=== PATIENT | female | born 1990 | race African-American/Black ===

== ENCOUNTER 2016-08-12 21:53 | Emergency (ER) | payer MEDICAID | END 2016-08-12 23:32 | disposition home or self-care (01) | LOC: D.ER 21:53 | DX: M54.5 Low back pain (principal); W01.0XXA Fall on same level from slipping, tripping and stumbling without subsequent striking against object, initial encounter; Y93.89 Activity, other specified; Y92.019 Unspecified place in single-family (private) house as the place of occurrence of the external cause ==

== ENCOUNTER 2017-01-27 00:36 | Emergency (ER) | payer MEDICAID | END 2017-01-27 02:26 | disposition home or self-care (01) | LOC: D.ER 00:36 | DX: L02.415 Cutaneous abscess of right lower limb (principal); B95.62 Methicillin resistant Staphylococcus aureus infection as the cause of diseases classified elsewhere ==

== ENCOUNTER 2017-02-25 17:16 | Emergency (ER) | payer MEDICAID | END 2017-02-25 18:49 | disposition home or self-care (01) | LOC: D.ER 17:16 | DX: L02.415 Cutaneous abscess of right lower limb (principal); R50.9 Fever, unspecified ==

== ENCOUNTER 2018-01-11 05:45 | Emergency (ER) | payer MEDICAID ==
[~2018-01-11] VITALS: Ht 170.2 cm; Wt 63.6 kg
[2018-01-11 05:59] VITALS: Ht 170.2 cm; Wt 63.6 kg
[2018-01-11] MEDS ORDERED: PROZAC10 MG (06:00)
[2018-01-11 06:27] LABS: BASOPHILS 0.1 % (0-2); EOSINOPHILS 1.1 % (0-7); HEMOGLOBIN 11.5 g/dL (12-16); IMMATURE GRANULOCYTES 0.1 % (0-5); LYMPHOCYTES 18.5 % (15-50); MCH 32.5 pg (26.0-34.0); MCHC 34.8 g/dL (31.0-37.0); MCV 93.2 fL (80.0-100.0); MONOCYTES 9.4 % (2-11); NEUTROPHILS 70.8 % (40-80); PLATELET COUNT 152 10x3/uL (130-400); RBC 3.54 10x6/uL (4.00-5.40); RDW 12.9 % (11.5-14.5); WBC 7.8 10x3/uL (4.8-10.8)
[2018-01-11 06:36] LABS: HCG SERUM POSITIVE (NEGATIVE)
[2018-01-11 06:43] LABS: APPEARANCE SLT CLOUDY (CLEAR); BILIRUBIN NEGATIVE (NEGATIVE); COLOR YELLOW (YELLOW); GLUCOSE NEGATIVE (NEGATIVE); KETONE NEGATIVE (NEGATIVE); NITRITE NEGATIVE (NEGATIVE); PROTEIN TRACE mg/dL (NEGATIVE); SPECIFIC GRAVITY 1.025 (1.005-1.020); UROBILINOGEN NORMAL (NORMAL)
[2018-01-11 06:46] LABS: BACTERIA MODERATE /hpf (NONE SEEN); MUCUS >1+ /lpf (NONE SEEN); RED CELLS - URINE RARE /hpf (0-5)
[2018-01-11 06:50] LABS: ALBUMIN 3.4 g/dL (3.4-5.0); ALKALINE PHOSPHATASE 33 U/L (46-116); ALT (SGPT) 14 U/L (10-68); BILIRUBIN - TOTAL 0.67 mg/dL (0.2-1.3); CALC OSMOLALITY 269 mosm/kg (275-300); CALCIUM 8.7 mg/dL (8.5-10.1); CARBON DIOXIDE 27.3 mmol/L (21.0-32.0); CHLORIDE - SERUM 102 mmol/L (98-107); CREATININE - SERUM 0.5 mg/dL (0.6-1.3); GLUCOSE 87 mg/dL (74-106); POTASSIUM - SERUM 3.5 mmol/L (3.5-5.1); SODIUM 136 mmol/L (136-145); UREA NITROGEN 10 mg/dL (7-18); eGFR NON AFRICAN AMERICAN > 90 mL/min (90-120)
[2018-01-11 07:07] LABS: HCG - QUANTITATIVE (MATERNAL) 102558 mIU/mL
[2018-01-11] MEDS ORDERED: MACROBID100 MG PO (08:36)
[2018-01-11 08:46] VITALS: BP 114/77
== END 2018-01-11 08:47 | disposition home or self-care (01) ==
LOC: D.ER 05:45
PROVIDERS: Family Medicine
DX: O23.41 Unspecified infection of urinary tract in pregnancy, first trimester (principal); Z3A.10 10 weeks gestation of pregnancy

== ENCOUNTER → 2018-05-03 12:41 | Outpatient (CLI) | payer MEDICAID ==
[2018-01-11 05:59] VITALS: BMI 21.9
[~2018-05-03 12:41] MED LIST: MACROBID100 MG PO; PROZAC10 MG
[2018-05-03 14:52] LABS: BASOPHILS 0.1 % (0-2); EOSINOPHILS 0.6 % (0-7); HEMATOCRIT 30.5 % (36.0-48.0); HEMOGLOBIN 10.5 g/dL (12-16); IMMATURE GRANULOCYTES 0.6 % (0-5); LYMPHOCYTES 8.6 % (15-50); MCH 33.3 pg (26.0-34.0); MCHC 34.4 g/dL (31.0-37.0); MCV 96.8 fL (80.0-100.0); MEAN PLATELET VOLUME 10.9 fL (7.4-10.4); MONOCYTES 6.8 % (2-11); NEUTROPHILS 83.3 % (40-80); PLATELET COUNT 169 10x3/uL (130-400); RBC 3.15 10x6/uL (4.00-5.40); WBC 13.5 10x3/uL (4.8-10.8)
[2018-05-03 15:19] LABS: UDS - AMPHET NEGATIVE QUAL (NEGATIVE); UDS - BARB NEGATIVE QUAL (NEGATIVE); UDS - BENZO NEGATIVE QUAL (NEGATIVE); UDS - COCAINE NEGATIVE QUAL (NEGATIVE); UDS - OPIATE NEGATIVE QUAL (NEGATIVE); UDS - PCP NEGATIVE QUAL (NEGATIVE); UDS - THC POSITIVE QUAL (NEGATIVE)
[2018-05-03 15:27] LABS: APPEARANCE CLEAR (CLEAR); BILIRUBIN NEGATIVE (NEGATIVE); COLOR YELLOW (YELLOW); EPITHELIAL CELLS 0-5 /hpf (0-5); GLUCOSE NEGATIVE (NEGATIVE); KETONE NEGATIVE (NEGATIVE); NITRITE NEGATIVE (NEGATIVE); PROTEIN 2+ mg/dL (NEGATIVE); RED CELLS - URINE OCC /hpf (0-5); UROBILINOGEN NORMAL (NORMAL); WHITE CELLS - URINE 0-5 /hpf (0-5)
[2018-05-03 15:47] LABS: INR 1.1 (0.85-1.17); PROTIME 13.8 SECONDS (11.6-15.0)
== END | disposition home or self-care (01) ==
LOC: D.ER 12:41 → D.LDO 12:41 → EDSTATUS 12:47
PROVIDERS: Obstetrics & Gynecology
DX: O26.892 Other specified pregnancy related conditions, second trimester (principal); Z3A.26 26 weeks gestation of pregnancy; R10.2 Pelvic and perineal pain

== ENCOUNTER 2018-07-23 20:13 | Outpatient (CLI) | payer MEDICAID ==
[2018-01-11 05:59] VITALS: BMI 21.9
[2018-07-23 21:25] LABS: APPEARANCE CLEAR (CLEAR); BILIRUBIN NEGATIVE (NEGATIVE); COLOR YELLOW (YELLOW); GLUCOSE NEGATIVE (NEGATIVE); KETONE NEGATIVE (NEGATIVE); NITRITE NEGATIVE (NEGATIVE); PROTEIN NEGATIVE (NEGATIVE); UROBILINOGEN NORMAL (NORMAL)
[2018-08-07 09:27] VITALS: BMI 29.7
== END 2018-07-24 00:34 | disposition home or self-care (01) ==
LOC: D.LDO 20:13 → D.LD 23:54 → D.LDO 07-24 00:34
PROVIDERS: Obstetrics & Gynecology
DX: O26.893 Other specified pregnancy related conditions, third trimester (principal); Z3A.37 37 weeks gestation of pregnancy

== ENCOUNTER 2018-07-27 19:44 | Outpatient (CLI) | payer MEDICAID ==
[2018-01-11 05:59] VITALS: BMI 21.9
[2018-08-07 09:27] VITALS: BMI 29.7
== END 2018-07-27 20:45 | disposition home or self-care (01) ==
LOC: D.LDO 19:44
DX: O26.893 Other specified pregnancy related conditions, third trimester (principal); Z3A.38 38 weeks gestation of pregnancy

== ENCOUNTER 2018-08-06 07:30 | Inpatient (IN) | payer MEDICAID ==
[2018-08-06] VITALS (10 sets, daily range): BP systolic 125–144; BP diastolic 67–89; BMI 29.8
[~2018-08-06] VITALS: Ht 170.2 cm; Wt 86.2 kg
[2018-08-06] MEDS ORDERED: PREPLUS CA-FE1 EACH PO (11:05)
[2018-08-06 11:54] LABS: HEMATOCRIT 31.9 % (36.0-48.0); HEMOGLOBIN 10.5 g/dL (12-16); MCH 31.2 pg (26.0-34.0); MCHC 32.9 g/dL (31.0-37.0); MCV 94.7 fL (80.0-100.0); MEAN PLATELET VOLUME 10.9 fL (7.4-10.4); RBC 3.37 10x6/uL (4.00-5.40); RDW 14.8 % (11.5-14.5); WBC 10.5 10x3/uL (4.8-10.8)
[2018-08-06 12:02] LABS: UDS - AMPHET NEGATIVE QUAL (NEGATIVE); UDS - BARB NEGATIVE QUAL (NEGATIVE); UDS - BENZO NEGATIVE QUAL (NEGATIVE); UDS - COCAINE NEGATIVE QUAL (NEGATIVE); UDS - OPIATE NEGATIVE QUAL (NEGATIVE); UDS - PCP NEGATIVE QUAL (NEGATIVE); UDS - THC POSITIVE QUAL (NEGATIVE)
--- NOTE | 2018-08-06 16:07 | NUR ---
DR MEJIA IN UNIT TO SEE PT. PRESCRIPTION FOR PRILOSEC WRITTEN. DISCHARGE ORDERS RECEIVED.
--- NOTE | 2018-08-06 20:02 | NUR ---
PT RECEIVED FROM RR VIA PT BED, PT AWAKE, ALERT, CONVERSANT, ANSWERING APPROPRIATELY, REPORTS PAIN AN 8 ON 10 ON NUMERIC PAIN SCALE, O2 SAT 100%, HEART RRR, LUNGS CTAB, ABD SOFT TENDER NO FLATUS, HYPOACTIVE BOWEL SOUNDS X4 QUADRANTS, LOW TRANSVERSE INCISION CDI WITH BULKY ADHESIVE WHITE DRESSING, NO DRAINAGE NOTED AT THIS TIME, YARBROUGH CATHETER TO GRAVITY DRAINAGE WITH CLEAR YELLOW URINE NOTED IN TUBING, IV TO RIGHT FA BENIGN TO INSPECTION, PATIENT INFUSING NS WITH 20 UNITS PITOCIN ADDED AT 125ML/HR SET TO IVAC PUMP, NO DIFFICULTY NOTED, RESP EVEN AND UNLABORED, FUNDUS FIRM AT U/1 AND MIDLINE, LOCHIA RUBRA MODERATE AMOUNT, NO CLOTS, PERICARE PROVIDED AND POSITIONED TO COMFORT, HOB ELEVATED AT 30 DEGREES, DENIES NAUSEA, ICE CHIPS PROVIDED UPON REQUEST, ICE PACK TO INCISIONAL DRESSING IN PLACE, SCDS APPLIED TO B LE AND FUNCTIONING APPROPRIATELY, BED LOWERED, BRAKES LOCKED, SIDE RAILS UP X2, BED IN LOW POSITION. CONTINUE TO MONITOR.
--- NOTE | 2018-08-06 20:14 | NUR ---
SCHEDULED TORADOL AND PRN PERCOCET GIVEN WITH SIPS WATER AFTER VERIFYING ORDERS WITH MD. REVIEWED ORDERS WITH PT, PT STATES UNDERSTANDING. CALL LIGHT IN EASY REACH.
--- NOTE | 2018-08-06 20:19 | NUR ---
FUNDUS FIRM AT U/1 AND MIDLINE, LOCHIA RUBRA LIGHT TO MODERATE AMOUNT, NO CLOTS OBSERVED, SIGNIFICANT OTHER AT BS WITH IN ARMS, BONDING NOTED. CALL LIGHT IN EASY REACH, REVIEWED USE OF REMOTE AND CALL LIGHT WITH PT, NO OTHER QUESTIONS AT THIS TIME.
--- NOTE | 2018-08-06 20:34 | NUR ---
VSS. RESP EVEN AND UNLABORED, PT DROWSY BUT RESPONSIVE, PULSE OX 100%. FUNDUS FIRM AT U/1 AND MIDLINE, LOCHIA RUBRA LIGHT AMOUNT, PERICARE AND YARBROUGH CARE GIVEN, EMPTIED 200 ML URINE FROM COLLECTION CHAMBER THEN RESET TO GRAVITY DRAINAGE, PIV INFUSING PER MD ORDERS WITHOUT DIFFICULTY VIA IVAC PUMP, PT SIGNIFICANT OTHER AT BEDSIDE WITH INFANT IN ARMS, LIGHTS DIMMED PER PT REQUEST. NO OTHER NEEDS VOICED AT THIS TIME. CONTINUE TO MONITOR.
--- NOTE | 2018-08-06 20:49 | NUR ---
PT RESTING WITH EYES CLOSED, PT RATES PAIN A 7 OR 8 ON NUMERIC PAIN SCALE, FUNDUS FIRM AT U/1 AND MIDLINE. LOCHIA RUBRA MODERATE AMOUNT, PERICARE PROVIDED, REPOSITIONED PT TO COMFORT, TOLERATING PO FLUIDS WELL WITHOUT C/O NAUSEA AT PRESENT. CONTINUE TO MONITOR.
--- NOTE | 2018-08-06 21:34 | NUR ---
PT RESTING WITH EYES CLOSED, C/O PAIN ON MOVEMENT, ICE PACK OVERLAY TO LOW TRANSVERSE INCISION, PT DEMONSTRATES USE OF INCENTIVE SPIROMETER UP TO 2000ML INSPIRED VOLUME, FUNDUS FIRM AT U/1 AND MIDLINE. LOCHIA RUBRA LIGHT TO MODERATE AMOUNT, PERICARE PROVIDED, TOLERATING PO CLEAR LIQUIDS. CONTINUE TO MONITOR.
--- NOTE | 2018-08-06 21:49 | NUR ---
PT LINENS CHANGED, PERICARE PROVIDED, PERIPADS AND CHUX PLACED, FRESH ICE PACK OVERLAY TO LOW TRANSVERSE INCISIONAL DRESSING, VSS. PT REPORTS PAIN A 10 0N NUMERIC PAIN SCALE, REQUESTS ADDITIONAL MEDICATION, INFORMED PT THAT MD IN SURGERY BUT SHOULD BE OUT SOON AND WILL REQUEST PRN MEDS AT THAT TIME. PT STATES UNDERSTANDING. FUNDUS FIRM AT U/1 AND MIDLINE, LOCHIA RUBRA MODERATE AMOUNT, YARBROUGH CATHETER WITH 40 MLS PRESENT IN COLLECTION CHAMBER AND EMPTIED TO BAG SET TO GRAVITY. [place] PROVIDED UPON REQUEST. PT DEMONSTRATES INCENTIVE SPIROMETERY USE UP TO 2000ML VOLUME INSPIRED WITH ENCOURAGEMENT. CALL LIGHT IN EASY REACH, CONTINUE TO MONITOR.
--- NOTE | 2018-08-06 21:55 | NUR ---
NOTIFIED DR FAITH UPON RETURN TO UNIT OF PT CONTINUED C/O PAIN AFTER ADMINISTRATION OF PERCOET AND SCHEDULED TORADOL, STATES WILL ENTER ORDER FOR PAIN MED AND BENEDRYL.
--- NOTE | 2018-08-06 22:03 | NUR ---
MORPHINE 4MG AND 50MG BENEDRYL SIVP ADMINISTERED WITH 10ML NS BETWEEN MEDS VIA PIV RIGHT FA, TOLERATES WELL. PT STATES "I THINK IT'S STARTING TO WORK" WHILE THIS RN AT BEDSIDE, SR UP X2, BED IN LOW POSITION, BRAKES LOCKED, CALL LIGHT IN EASY REACH, RESP EVEN AND UNLABORED, PULSE OX 100%. CONTINUE TO MONITOR.
--- NOTE | 2018-08-06 22:40 | NUR ---
PAIN REASSESSMENT -PT DROWSY BUT REPORTS PAIN OF "3 OR 4" ON INQUIRY, PT RESP EVEN AND UNLABORED, PULSE OX 100% ON RA, FUNDUS FIRM AT U/1 AND MIDLINE LOCHIA RUBRA LIGHT AMOUNT, NO CLOTS OBSERVED, PERIPAD CHANGED. CALL LIGHT IN EASY REACH, CONTINUE TO MONITOR.
--- NOTE | 2018-08-06 23:35 | NUR ---
ROUNDS COMPLETED, VSS, AFEBRILE, RESP EVEN AND UNLABORED, ABD SOFT, FUNDUS FIRM AT U/1 AND MIDLINE, LOCHIA RUBRA MODERATE AMOUNT, PERICARE/YARBROUGH CARE PROVIDED, YARBROUGH CATHETER DRAINING SUFFICIENT QUANTITY OF URINE TO GRAVITY COLLECTION CHAMBER, REPOSITIONED PT TO COMFORT, CALL LIGHT IN EASY REACH, SIDE RAILS UP X2, BED IN LOW POSITION, BRAKES LOCKED, CONTINUE TO MONITOR.
--- NOTE | 2018-08-07 00:34 | NUR ---
PAGED DR FAITH.
[2018-08-07 00:40] VITALS: BP 141/78
--- NOTE | 2018-08-07 00:41 | NUR ---
REVIEWED PT CONCERNS WITH PAIN MANAGEMENT WITH DR FAITH, NEW ORDER RECEIVED, NOTED, AND VERIFIED VIA TORB, CONTINUE TO MONITOR PT.
--- NOTE | 2018-08-07 02:12 | NUR ---
PT C/O LEFT A/C SALINE LOCK PAIN AND DISCOMFORT, DEMANDS TO BE TAKEN OUT. IV TO LEFT A/C DC'D CATH TIP INTACT, PRESSURE DRESSING APPLIED AND SECURED WITH TAPE. PT REQUESTS LIQUIDS, APPLE/GRAPE JUICE PROVIDED UPON REQUEST.
--- NOTE | 2018-08-07 02:50 | NUR ---
PAIN REASSESSMENT COMPLETED, RATES PAIN A 5 OF 10 ON NUMERIC PAIN SCALE, RESP EVEN AND UNLABORED, BONDING WELL WITH , NO DISTRESS NOTED. CONTINUE TO MONITOR.
[2018-08-07 03:38] VITALS: BP 136/57
--- NOTE | 2018-08-07 03:39 | NUR ---
VSS, AFEBRILE, RATES PAIN A 4 OR 5 ON NUMERIC PAIN SCALE, FUNDUS FIRM AT U/2 AND MIDLINE, LOCHIA RUBRA LIGHT TO MODERATE AMOUNT, PERIPADS CHANGED, PERICARE AND YARBROUGH CARE PROVIDED, EMPTIED 200ML URINE FROM COLLECTION CHAMBER, IV TO RIGHT FA SECURED AGAIN WITH TAPE AFTER REMOVING LOOSE TAPE, IV FLUIDS FOUND LEAKING ON FLOOR AND TUBING DISCONNECTED FROM SALINE LOCK DEVICE, RECONNECTED IVF AND RESECURED. DENIES NEEDS AT THIS TIME, TOLERATING PO FLUIDS WITHOUT DIFFICULTY, DENIES FLATUS, FOLEY FREELY, BONDING WELL WITH IN ARMS AT THIS TIME. CALL LIGHT IN EASY REACH, CONTINUE TO MONITOR.
--- NOTE | 2018-08-07 03:55 | NUR ---
IV ALARM, ON ENTRY TO ROOM, PT REPORTS CALL LIGHT NOT WORKING AT THIS TIME BUT ABLE TO USE FOR TV REMOTE. PT AAO3, PT GIVEN PHONE NUMBER TO UNIT DESK FOR NEEDS AND WRITTEN ON WRITE BOARD FOR REFERENCE, PHONE WITHIN EASY REACH ON BEDSIDE TABLE, PT STATES UNDERSTANDING OF ALL INSTRUCTIONS PROVIDED. REPORTED TO CHARGE NURSE AND WORK ORDER INITIATED FOR REPLACEMENT CALL LIGHT.
--- NOTE | 2018-08-07 04:13 | NUR ---
SCHEDULED BENADRYL GIVEN PER MD ORDERS. PT ASKING ABOUT ZOLOFT FOR HER PTSD THAT SHE QUIT TAKING WHEN SHE FOUND OUT SHE WAS , INSTRUCTED TO SPEAK WITH DR FAIHT ABOUT THIS IN THE MORNING. PT STATES UNDERSTANDING.
--- NOTE | 2018-08-07 05:14 | NUR ---
ROUNDS COMPLETED, PT WITH IN ARMS, ALERT AND ORIENTED, DENIES C/O PAIN OR NEED FOR PAIN MEDS AT THIS TIME, TOLERATING PO FLUIDS, CONTINUE TO MONITOR.
[2018-08-07 06:39] LABS: BASOPHILS 0.1 % (0-2); EOSINOPHILS 1.2 % (0-7); HEMOGLOBIN 8.9 g/dL (12-16); IMMATURE GRANULOCYTES 0.5 % (0-5); LYMPHOCYTES 11.7 % (15-50); MCH 30.7 pg (26.0-34.0); MCV 93.1 fL (80.0-100.0); MEAN PLATELET VOLUME 11.1 fL (7.4-10.4); MONOCYTES 11.8 % (2-11); NEUTROPHILS 74.7 % (40-80); PLATELET COUNT 149 10x3/uL (130-400); RDW 14.7 % (11.5-14.5); WBC 10.6 10x3/uL (4.8-10.8)
--- NOTE | 2018-08-07 06:55 | NUR ---
ROUNDS COMPLETED, PT RESTING WITH EYES CLOSED, HOB ELEVATED 30 DEGREES, CALL LIGHT IN EASY REACH. NAD NOTED.
--- NOTE | 2018-08-07 07:30 | NUR ---
SBAR HANDOFF RECEIVED AT 0700 FROM COURTNEY HUTTON.REMAINS STABLE IN BED WITH NO SIGNS OF DISTRESS. IV R WRIST INFUSING PITOCIN 2UNITS AT 125ML/HR WITH NO SIGNS OF COMPLICATIONS AT INSERTION SITE. YARBROUGH PATENT WITH CHERELLE URINE.FUNDUS FIRM AT 1FAU WITH LOCHIA MODERATE; NO CLOTS. PATIENT STATES MD SAID SHE COULD EAT REGULAR FOOD NOW. MD NOTIFIED OF SAME. NEW ORDER NOTED; WILL DC YARBROUGH; SALINE LOCK IV AND ORDER REGULAR DIET. MOTHER HOLDING
[2018-08-07 07:36] VITALS: BP 136/80
[2018-08-07 08:21] LABS: RAPID PLASMA REAGIN Non Reactive (Non Reactive)
--- NOTE | 2018-08-07 09:00 | NUR ---
IVF DC'D; SALINE LOCK ADDED AND FLUSHED EASILY; NO SIGNS OF COMPLICATIONS AT INSERTION SITE; YARBROUGH DC'D. INSTRUCTED TO VOID X 3 IN RECEPTACLE IN TOILET TO MAKE SURE VOIDING OK AND TO NOTIFY STAFF EACH TIME; GIVING ONLY 6 HR TO VOID FIRST TIME. MOTHER UP TO SPONGE BATHE UNTIL LOWER ABD DSG MAY BE REMOVED BY SURGEON.
--- NOTE | 2018-08-07 09:15 | NUR ---
TRANSFERRED TO ROOM 1223 PER PEDIS. [place] WELL. REPORTS PASSAGE OF GAS RECTALLY. NO SIGNS OF RESP DISTRESS OR OTHER DISTRESS NOTED OR REPORTED.
[2018-08-07 09:27] VITALS: Ht 170.2 cm; Wt 86.2 kg
--- NOTE | 2018-08-07 10:30 | NUR ---
UP AND ABOUT IN ROOM. CARING FOR INFANT. NO SIGNS OF DISTRESS
[2018-08-07 11:45] VITALS: BP 122/74
--- NOTE | 2018-08-07 12:40 | NUR ---
VOIDED 400ML CLEAR CHERELLE URINE. REPORTS PAIN SUBSIDING AFTER OXYCODONE GIVEN
--- NOTE | 2018-08-07 13:21 | NUR ---
STATES SHE IS FEELING BETTER NOW. LYING IN BED HOLDING .
--- NOTE | 2018-08-07 15:00 | NUR ---
UP AND ABOUT IN ROOM, CARING FOR INFANT. NO SIGNS OF DISTRESS
--- NOTE | 2018-08-07 16:30 | NUR ---
SLEEPING AT INTERVALS. DENIES DIFFICULTY VOIDING. UP AND ABOUT IN ROOM CARING FOR INFANT. NO SIGNS OF DISTRESS.
--- NOTE | 2018-08-07 18:00 | NUR ---
REMAINS STABLE WITH NO SIGNS OF RESP DISTRESS OR OTHER DISTRESS NOTED OR REPORTED. HAS ONLY VOIDED X 2 SINCE CATHETER REMOVED AT 0900. INSTRUCTED TO VOID ONE MORE TIME IN RECEPTACLE.
--- NOTE | 2018-08-07 19:17 | NUR ---
BEDSIDE ROUNDS MADE. PT VISITING WITH VISITORS, DENIES NEEDS AT THIS TIME. BED IN LOW POSITION WITH UPPER SIDE RAILS RAISED X2. CALL LIGHT AND PHONE WITHIN REACH. WILL CONTINUE TO MONITOR AND ASSIST PRN.
[2018-08-07 20:02] VITALS: BP 121/64
--- NOTE | 2018-08-07 20:02 | NUR ---
CALLS VIA CALL LIGHT. PAIN 12/31, MEDS GIVEN PER REQUEST. SHIFT ASSESSMENT COMPLETED PER FLOW SHEET. LOWER TRANSVERSE ABD INCISION CLEAN, DRY, AND WELL APPROXIMATED WITH STERISTRIPS IN PLACE. PT EDUCATED ON PLACING PERIPAD OVER INCISION TO PREVENT CLOTHES RUBBING AND TO KEEP IT DRY. PT C/O "GAS PAINS" ALSO, ABD SLIGHTLY DISTENDED, STATES SHE FEELS NEED TO PASS FLATUS BUT HAS BEEN UNABLE TO, ENCOURAGED TO AMBULATE ON UNIT, STATES THAT SHE HAS AMBULATED "SEVERAL TIMES TODAY." WILL NOTIFY DR. FAITH. 1+ BLE EDEMA NOTED, PT REPORTS IMPROVEMENT IN SWELLING. 400 MLS URINE EMPTIED FROM HAT. VSS. PT REFUSES LINEN CHANGE AND SHOWER AT THIS TIME. STATES THAT SHE JUST WANTS TO HAYNES WITH INFANT. ICE WATER PROVIDED. DENIES ADDITIONAL NEEDS AT THIS TIME. BED IN LOW POSITION WITH UPPER SIDE RAILS RAISED X2. CALL LIGHT AND PHONE WITHIN REACH. WILL CONTINUE TO MONITOR AND ASSIST PRN.
--- NOTE | 2018-08-07 20:32 | NUR ---
DR. FAITH ON UNIT, LABS ORDERS CLARIFIED NEEDING TO BE DRAWN TONIGHT AND NOT IN A.M. SPOKE WITH DR. FAITH REGARDING PT C/O NO FLATUS PASSING. V/O WITH READBACK REC'D TO GIVE SIMETHICONE 80 MG BID PO.
--- NOTE | 2018-08-07 20:45 | NUR ---
PAIN REASSESSMENT COMPLETED, 10/01. DENIES NEED FOR ADDITIONAL INTERVENTION. BED IN LOW POSITION WITH UPPER SIDE RAILS RAISED X2. CALL LIGHT AND PHONE WITHIN REACH. WILL CONTINUE TO MONITOR AND ASSIST PRN.
[2018-08-07 21:08] LABS: ALBUMIN 2.3 g/dL (3.4-5.0); ALKALINE PHOSPHATASE 96 U/L (46-116); ALT (SGPT) 16 U/L (10-68); BILIRUBIN - TOTAL 1.13 mg/dL (0.2-1.3); CALC OSMOLALITY 273 mosm/kg (275-300); CALCIUM 8.3 mg/dL (8.5-10.1); CHLORIDE - SERUM 103 mmol/L (98-107); CREATININE - SERUM 0.7 mg/dL (0.6-1.3); GLUCOSE 93 mg/dL (74-106); LDH 311 U/L (81-234); POTASSIUM - SERUM 4.1 mmol/L (3.5-5.1); PROTEIN - SERUM 5.8 g/dL (6.4-8.2); SODIUM 138 mmol/L (136-145); UREA NITROGEN 8 mg/dL (7-18); eGFR NON AFRICAN AMERICAN > 90 mL/min (90-120)
--- NOTE | 2018-08-07 21:15 | NUR ---
DR. FAITH AT BEDSIDE DISCUSSING PLAN OF CARE WITH PT. I&O CATH PROCEDURE EXPLAINED TO PT, VERBALIZES UNDERSTANDING AND PREMITS TO I&O CATH. PT POSITIONED FOR PROCEDURE.
--- NOTE | 2018-08-07 21:23 | NUR ---
I&O CATH DONE PER ORDER FOR URINE PROTEIN COLLECTION. DR. FAITH AT BEDSIDE. THIS RN ATTEMPTED COLLECTIONS, PT CLENCHING LEGS AND MOVING UP IN BED, UNABLE TO COLLECT SPECIMAN. DR. FAITH EXPLAINED IMPORTANCE OF COLLECTION OF URINE TO PT, PT AGREEABLE, DR. FAITH COLLECTED URINE SPECIMAN. SPECIMAN SENT TO LAB.
--- NOTE | 2018-08-07 21:32 | NUR ---
PT AMBULATORY ON UNIT, STEADY GAIT NOTED. DENIES NEEDS AT THIS TIME.
[2018-08-07 22:17] LABS: PRO/CRE RATIO URINE 0.1 mg/g; PROTEIN - URINE 17.8 mg/dL (0.0-11.9)
--- NOTE | 2018-08-07 22:23 | NUR ---
RN TO BEDSIDE. SCHEDULED BENADRYL OFFERED PER ORDER. PT BOTTLE FEEDING INFANT, REQUESTS SANDWICH TRAY AND TO HOLD BENADRYLY UNTIL SHE FINISHES SANDWICH. DENIES NEEDS AT THIS TIME.
--- NOTE | 2018-08-07 22:56 | NUR ---
BENADRYL GIVEN SIVP PER ORDER AND PT REQUEST. SIMETHCONE OFFERED AND DECLINED BY PT. STATES THAT SINCE AMBULATING IN [place] SHE IS NOW PASSING FLATUS. FALL PRECAUTIONS REINFORCED WITH VERBALIZED UNDERSTANDING. CALL LIGHT AND PHONE WITHIN REACH. BED IN LOW POSITION WITH UPPER SIDE RAILS RAISED X2.
--- NOTE | 2018-08-08 00:03 | NUR ---
SANDWICH TRAY PROVIDED PER REQUEST. PT BONDING WITH . PAIN 08/31. STATES THAT SHE IS PASSING FLATUS NOW AND PAIN IS BETTER. ICE WATER PROVIDED. DENIES ADDITIONAL NEEDS AT THIS TIME.
--- NOTE | 2018-08-08 00:17 | NUR ---
PT IN SHOWER. LINEN CHANGE DONE. S/O REMAINS IN ROOM WITH PT WHILE SHE IS IN SHOWER. PT VERBALIZES UNDERSTANDING OF CL USE WHILE IN SHOWER.
--- NOTE | 2018-08-08 00:59 | NUR ---
PT CALLS RN TO ROOM FOLLOWING GETTING OUT OF SHOWER. REPORTS THAT PIV FELL OUT WHILE SHE WAS IN THE SHOWER. DISCUSSED RESITE FOR IV MEDS. PT REFUSES. STATES THAT SHE THINKS SHE IS GOING HOME TODAY. WILL REPORT TO DR. FAITH.
[2018-08-08 01:07] VITALS: BP 123/63
--- NOTE | 2018-08-08 01:10 | NUR ---
PAIN 5/10, INCISIONAL BURNING AND STINGING. PERCOCET GIVEN PER ORDER. VSS. FUNDUS REMAINS FIMR MIDLINE AND U2, SMALL AMT RUBRA LOCHIA, NO CLOTS PRESENT. ICE WATER PROVIDED. S/O AT BEDSIDE HOLDING INFANT. PT DENIES ADDITIONAL NEEDS AT THIS TIME. BED IN LOW POSITION WITH UPPER SIDE RAILS RAISED X2. CALL LIGHT AND PHONE WITHIN REACH. WILL CONTINUE TO MONITOR AND ASSIST PRN.
--- NOTE | 2018-08-08 01:50 | NUR ---
PAIN REASSESSMENT COMPLETED. PAIN 10/01, DENIES NEED FOR ADDITIONAL INTERVENTION. STATES THAT SHE FEELS GAS PAIN BUILDING UP AGAIN. ENCOURAGED PT TO AMBULATE IN [place].
--- NOTE | 2018-08-08 02:51 | NUR ---
REQUESTING ADDITIONAL PAIN MEDICATIONS. STATES THAT SHE IS UNABLE TO PASS FLATUS POST AMBULATION IN [place]. DISCUSSED SIMETHICONE USE WITH PT, VERBALIZES UNDERSTANDING AND REQUEST MED AT THIS TIME.
--- NOTE | 2018-08-08 03:37 | NUR ---
NO IV ACCESS AND PT REFUSAL OF RESITE REPORTED TO DR. FAITH BY Gen LE, RN. ORDERS REC'D TO D/C IV BENADRYL. PT INFORMED.
[2018-08-08 04:01] VITALS: BP 112/70
--- NOTE | 2018-08-08 04:01 | NUR ---
SCHEDULED MOTRIN GIVEN PER ORDER. PAIN 6/10, ABD CRAMPING AND INCISIONAL BURNING. ICE WATER PROVIDED. S/O REMAINS IN ROOM WITH PT. INFANT IN OPEN CRIB AT BEDSIDE. DENIES ADDITIONAL NEEDS AT THIS TIME. BED IN LOW POSITION WITH UPPER SIDE RAILS RAISED X2. CALL LIGHT AND PHONE WITHIN REACH. WILL CONTINUE TO MONITOR AND ASSIST PRN.
--- NOTE | 2018-08-08 04:49 | NUR ---
PAIN REASSESSMENT COMPLETED. PT RESTING WITH EYES CLOSED. SNORING AUBILE. RESP REGULAR AND UNLABORED. NO S/S OF DISTRESS NOTED. BED IN LOW POSITION WITH UPPER SIDE RAILS RAISED X2. CALL LIGHT AND PHONE WITHIN REACH. WILL CONTINUE TO MONITOR AND ASSIST PRN.
--- NOTE | 2018-08-08 05:26 | NUR ---
CALLS VIA CL. PAIN 6/10 CONSTANT INCISIONAL STINGING AND INTERMITTENT ABD CRAMPING. PERCOCET GIVEN PER ORDER. ICE WATER PROVIDED. DENIES ADDITIONAL NEEDS AT THIS TIME. IN OPEN CRIB AT BEDSIDE. FALL PRECAUTIONS REINFORCED, VERBALIZED UNDERSTANDING AND DENIES NEEDS AT THIS TIME. BED IN LOW POSITION WITH UPPER SIDE RAILS RAISED X2. CALL LIGHT AND PHONE WITHIN REACH. WILL CONTINUE TO MONITOR AND ASSIST PRN.
--- NOTE | 2018-08-08 06:19 | NUR ---
PAIN REASSESSMENT COMPLETED. PT RESTING WITH EYES, RESPIRATIONS REGULAR AND UNLABORED, NO S/S OF DISTRESS NOTED. INFANT IN OPEN CRIB AT BEDSIDE. BED IN LOW POSITION WITH UPPER SIDE RAILS RAISED X2. CL AND PHONE WITHIN REACH. WILL CONTINUE TO MONITOR AND ASSIST PRN.
--- NOTE | 2018-08-08 08:44 | NUR ---
ASSESSMENT DONE. SITTING UP IN BED HOLDING BABY. ABD SOFT -BOWEL SOUNDS PRESENT. REG DIET SERVED. DENIES NEEDS.
--- NOTE | 2018-08-08 11:11 | NUR ---
REQUESTING PAIN MEDICATION- RATES PAIN A 7 ON SCALE OF 0-10. CO AT INCISION SITE. MED GIVEN
--- NOTE | 2018-08-08 11:12 | NUR ---
REWQUESTING PERCOCET 10 VS PERCOCET 5.
--- NOTE | 2018-08-08 12:00 | NUR ---
PT GETTING IN SHOWER THAT THIS TIME. REQUEST CLEAN PANTIES. PANTIES PROVIDED. BED LINENS CHANGED AT THIS TIME. UPON ENTERING THE ROOM, NOTED TO BE PROPPED IN THE BED WHILE PATIENT PLANS TO SHOWER. SAFETY TEACHING PROVIDED. SWADDLED AND PLACED IN CRIB IN SIGHT OF MOTHER WHILE SHE SHOWERS. PT OUT OF SHOWER JUST THIS RN FINISHES CHANGING THE BED. PAIN AND NEEDS ASSESSED. PT DENIES NEEDING PAIN INTERVENTIONS. REQUEST APPLE JUIC, ADDITIONAL PERIPADS AND A PERSONAL BELONGINGS BAG. ALL ITEMS PROVIDED.
[2018-08-08 13:24] VITALS: BP 135/60
--- NOTE | 2018-08-08 13:26 | NUR ---
UP AND ABOUT IN ROOM. VS DONE- CO PAIN AT INCISION- EXPLAINED THAT TOO SOON FOR PERCOCET. PT STATES THAT MOTRIN WILL HELP.
--- NOTE | 2018-08-08 14:30 | NUR ---
DR Marvin FAITH AT BEDSIDE. NEW ORDERS NOTED FOR DISCHARGE HOME WITH RTC ORDERS FOR 2 AND 6 WEEKS. REMAINS STABLE WITH NO SIGNS OF RESP DISTRESS OR OTHER DISTRESS NOTED OR REPORTED.
[2018-08-08] MEDS ORDERED: IBUPROFEN800 MG PO (14:57)
[2018-08-08] MEDS ORDERED: PERCOCET 5-3251 TAB PO (14:58)
[2018-08-08] MEDS ORDERED: ZOLOFT50 MG PO (14:59)
--- NOTE | 2018-08-08 15:00 | NUR ---
WALKING IN [place] WITH IN CRIB, FOR 20 MIN TO TRY AND GET BOWEL GAS MOVING. HOT TEA GIVEN AT END OF WALK. NO SIGNS OF DISTRESS
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
--- NOTE | 2018-08-08 19:54 | NUR ---
ROUNDS MADE. PT REPORTS THAT SHE IS READY TO D/C HOME, JUST WAITING ON FAMILY TO COME GET HER. PAIN 8/10, PERCOCET GIVEN PER REQUEST. FALL PRECAUTIONS REVIEWED AND PT INFORMED TO CALL FOR W/C OFF UNIT, VERBALIZES UNDERSTANDING.
--- NOTE | 2018-08-08 20:15 | NUR ---
PT CALLS VIA CALL LIGHT, REPORTS THAT FAMILY IS HERE TO TAKE HER HOME. PAIN 10/31. PT OFF UNIT IN W/C WITH Viki YOUNGER RN IN STABLE CONDITION. REFUSES SHIFT ASSESSMENT. STATES THAT SHE ALREADY HAS D/C PAPERWORK. PT PROVIDED WITH PERIPADS AND PANTIES TO TAKE HOME PER REQUEST.
[2018-08-09 14:11] LABS: UDSC - AMPHET Negative ng/mL (Cutoff=1000); UDSC - BARB Negative ng/mL (Cutoff=300); UDSC - BENZO Negative ng/mL (Cutoff=300); UDSC - COC Negative ng/mL (Cutoff=300); UDSC - METH Negative ng/mL (Cutoff=300); UDSC - OPIATES Negative ng/mL (Cutoff=300); UDSC - PCP Negative ng/mL (Cutoff=25); UDSC - PROPOXY Negative ng/mL (Cutoff=300); UDSC - THC Positive (Cutoff=50)
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
== END 2018-08-08 20:15 | disposition home or self-care (01) | DRG 788 ==
LOC: D.SDCHOLD 07:30 → D.WS 10:28 → D.LD 10:28 → D.WS 08-07 09:15
PROVIDERS: ADMIT Obstetrics & Gynecology
PROC: 10D00Z1 Extraction of Products of Conception, Low, Open Approach (ICD-10-PCS; principal; 2018-08-06 09:30)
DX: O99.824 Streptococcus B carrier state complicating childbirth (principal); Z3A.39 39 weeks gestation of pregnancy; Z37.0 Single live birth; O99.02 Anemia complicating childbirth; O26.893 Other specified pregnancy related conditions, third trimester; Z67.91 Unspecified blood type, Rh negative; O13.4 Gestational [pregnancy-induced] hypertension without significant proteinuria, complicating childbirth

== ENCOUNTER 2019-11-17 00:53 | Outpatient (CLI) | payer MEDICAID ==
[~2019-11-17] VITALS: Ht 170.2 cm; Wt 71.7 kg
[~2019-11-17 00:53] MED LIST changes: +IBUPROFEN800 MG PO; +PERCOCET 5-3251 TAB PO; +PREPLUS CA-FE1 EACH PO; +ZOLOFT50 MG PO
[2019-11-17 00:58] VITALS: BP 141/69; Ht 170.2 cm; Wt 71.7 kg
[2019-11-17 01:35] LABS: BILIRUBIN NEGATIVE (NEGATIVE); GLUCOSE NEGATIVE (NEGATIVE); KETONE NEGATIVE (NEGATIVE); NITRITE NEGATIVE (NEGATIVE); UROBILINOGEN NORMAL (NORMAL)
[2019-11-17 01:40] LABS: BACTERIA MODERATE /hpf (NEGATIVE); EPITHELIAL CELLS 0-5 /hpf (0-5); RED CELLS - URINE 0-5 /hpf (0-5); WHITE CELLS - URINE 0-5 /hpf (NEGATIVE)
[2019-11-17 01:42] LABS: UDS - AMPHET NEGATIVE QUAL (NEGATIVE); UDS - BARB NEGATIVE QUAL (NEGATIVE); UDS - BENZO NEGATIVE QUAL (NEGATIVE); UDS - COCAINE NEGATIVE QUAL (NEGATIVE); UDS - OPIATE NEGATIVE QUAL (NEGATIVE); UDS - PCP NEGATIVE QUAL (NEGATIVE); UDS - THC POSITIVE QUAL (NEGATIVE)
== END 2019-11-17 05:17 ==
LOC: D.LDO 00:53 → D.ER 00:53 → EDSTATUS 01:40 → D.LDO 05:17
PROVIDERS: Family Medicine; ATTEND Obstetrics & Gynecology
DX: O26.892 Other specified pregnancy related conditions, second trimester (principal); Z3A.26 26 weeks gestation of pregnancy; R10.9 Unspecified abdominal pain